=== PATIENT | female | born 1990 | race Caucasian/White ===

== ENCOUNTER 2024-06-08 02:57 | Outpatient (CLI) | payer BC, SELFPAY ==
[2024-06-08 12:21] LABS: Panorama Kit Sent via Fed Ex
[2024-06-08 12:41] LABS: HCT 38.7 % (36.0-46.0); MCH 30.5 pg (27.0-33.0); MCHC 33.6 % (32.0-36.0); MCV 91 fL (80-95); MPV 10.9 fL (8.0-11.0); Neutrophils % 67.1 %; Platelet Count 141 10^3/uL (130-400); RBC 4.26 10^6/uL (3.93-5.22); RDW 11.6 % (11.7-14.6); RDW-SD 38.1 fL; WBC 4.73 10^3/uL (4.4-10.8)
[2024-06-08 12:42] LABS: Abs Immature Grans 0.02 10^3/uL (0.0-0.06); Absolute Basophil Count 0.01 10^3/uL (0.0-0.2); Absolute Eosinophil Count 0.03 10^3/uL (0.0-0.7); Absolute Lymphocyte Count 1.14 10^3/uL (1.2-3.4); Absolute Monocyte Count 0.36 10^3/uL (0.1-0.8); Absolute Neutrophil Count 3.17 10^3/uL (1.2-6.7); Basophils % 0.2 %; Eosinophils % 0.6 %; Immature Grans % 0.4 %; Lymphocytes % 24.1 %; Monocytes % 7.6 %
[2024-06-08 12:52] LABS: ALT 20 U/L (14-59); AST 11 U/L (15-37); Albumin 4.3 g/dL (3.4-5.0); Alkaline Phosphatase 57 U/L (46-116); Anion Gap 10.5 mmol/L (3-11); BUN 7 mg/dL (7-18); Bilirubin, Total 0.5 mg/dL (0.2-1.0); CO2 26.5 mmol/L (21.0-32.0); CREATININE 0.5 mg/dL (0.55-1.02); Calcium 9.7 mg/dL (8.5-10.1); Chloride 103 mmol/L (98-107); Estimated GFR 128.52 (mL/min/1.73m2); Glucose 75 mg/dL (74-106); Potassium 3.7 mmol/L (3.5-5.1); Sodium 140 mmol/L (136-145); Total Protein 7.6 g/dL (6.4-8.2)
[2024-06-09 09:11] LABS: Hepatitis B Surface Ag Negative (Negative)
[2024-06-09 09:50] LABS: HIV-1/2 Ag & Ab Screen Negative (Negative)
[2024-06-09 10:09] LABS: Hepatitis C Ab w Rflx HCV PCR Negative (Negative)
[2024-06-09 10:12] LABS: Rubella IgG Ab (UVM) Positive (See Note)
[2024-06-09 10:14] LABS: Varicella IgG Antibody Positive (See Note)
[2024-06-10 17:49] LABS: Syphilis IgG w/Reflex Nonreactive (Nonreactive)
[2024-06-11 01:04] LABS: Specimen WB Whole Blood
[2024-06-23 23:36] LABS: Result Summary NEGATIVE; Specimen WB Whole Blood
== END 2024-06-08 02:58 | disposition home or self-care (01) ==
PROVIDERS: Visit Provider Advanced Practice Midwife
DX: Z34.91 Encounter for supervision of normal pregnancy, unspecified, first trimester (principal)
CPT/HCPCS: 36415; 80053; 81220; 81222; 81329; 86787; 86803; 86850; 86900; 86901; 87340; 87389; 85025; 86762; 86780

== ENCOUNTER 2024-06-08 12:17 | Outpatient (REF) | payer BC, SELFPAY ==
[2024-06-08 17:22] LABS: COMMENT (LAB VIEW ONLY) 97.45 mg/dL; PROTEIN 11.1 mg/dL; Prot/Crea Ur Ratio 0.11
[2024-06-08 17:29] LABS: *AMPHETAMINES SCREEN URINE Negative (Negative); *BARBITURATES SCREEN URINE Negative (Negative); *BENZODIAZEPINES SCREEN URINE Negative (Negative); Cannabinoids THC Negative (Negative); Cocaine Screen,Urine Negative (Negative); METHADONE URINE SCREEN Negative (Negative); OPIATES URINE SCREEN Negative (Negative)
[2024-06-08 17:30] LABS: Tricyclic Antidepressants Negative (Negative)
[2024-06-09 11:55] LABS: Chlamydia Result Negative (Negative); GC Result Negative (Negative)
[2024-06-09 12:33] LABS: Fentanyl Scr w/Rfx Confirm Negative ng/mL (<1)
[2024-06-11 14:02] LABS: Buprenorphine Negative ng/mL (Cutoff: 5.0); Norbuprenorphine Negative ng/mL (Cutoff: 2.5)
== END 2024-06-08 12:18 | disposition home or self-care (01) ==
LOC: LBN 12:17
PROVIDERS: Visit Provider Advanced Practice Midwife
DX: Z34.91 Encounter for supervision of normal pregnancy, unspecified, first trimester (principal)
CPT/HCPCS: 80307; 80348; 87491; 87591; 82565; 84156; 87086

== ENCOUNTER 2024-07-20 03:22 | Outpatient (CLI) | payer BC, SELFPAY ==
[2024-07-22 12:58] LABS: AFP 37.1 ng/mL; Calculated age at EDD 32 years; Cigarette smoking status non-Smoker; GA used in risk estimate Dates estimate; IVF Pregnancy No; Initial or repeat testing Initial testing; Insulin dependent diabetes No; Maternal Weight 164 lbs; Number of Fetuses 1; Physician Phone Number 802-748-7300; Prev Pregnancy w/NTD No; RECOMMENDED FOLLOW UP None.; Results Summary Normal risk
== END 2024-07-20 03:23 | disposition home or self-care (01) ==
LOC: LBO 03:22
PROVIDERS: Visit Provider Advanced Practice Midwife
DX: Z34.91 Encounter for supervision of normal pregnancy, unspecified, first trimester (principal)
CPT/HCPCS: 36415; 82105

== ENCOUNTER 2024-10-06 02:35 | Outpatient (CLI) | payer BC, SELFPAY ==
[2024-10-06 11:28] LABS: HCT 35.0 % (36.0-46.0); HGB 12.1 g/dL (11.2-15.7); MCH 32.1 pg (27.0-33.0); MCHC 34.6 % (32.0-36.0); MCV 93 fL (80-95); MPV 10.7 fL (8.0-11.0); Platelet Count 146 10^3/uL (130-400); RBC 3.77 10^6/uL (3.93-5.22); RDW 12.7 % (11.7-14.6); RDW-SD 42.7 fL; WBC 7.19 10^3/uL (4.4-10.8)
[2024-10-06 12:17] LABS: Glucose,1 Hr (Glucola) 111 mg/dL (80-140)
== END 2024-10-06 02:36 | disposition home or self-care (01) ==
LOC: LBO 02:35
PROVIDERS: Visit Provider Advanced Practice Midwife
DX: Z34.92 Encounter for supervision of normal pregnancy, unspecified, second trimester (principal)
CPT/HCPCS: 36415; 82950; 85027

== ENCOUNTER 2024-10-06 10:49 | Outpatient (REF) | payer BC, SELFPAY ==
[2024-10-06 12:37] LABS: Cannabinoids THC Negative (Negative); METHADONE URINE SCREEN Negative (Negative)
[2024-10-07 11:33] LABS: Fentanyl Scr w/Rfx Confirm Negative ng/mL (<1)
== END 2024-10-06 10:50 | disposition home or self-care (01) ==
LOC: LBN 10:49
PROVIDERS: Visit Provider Advanced Practice Midwife
DX: Z34.92 Encounter for supervision of normal pregnancy, unspecified, second trimester
CPT/HCPCS: 80307; 80348

== ENCOUNTER 2024-10-18 20:02 | Emergency (ER) | payer BC, SELFPAY ==
[2024-10-18 20:07] VITALS: BP 153/77; PULSE 79; RESP 18; TEMP 36.3; O2SAT 98
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
[2024-10-18 20:21] VITALS: BP 129/85
== END 2024-10-18 20:41 | disposition home or self-care (01) ==
PROVIDERS: Emergency Provider Emergency Medicine Emergency Medical Services
DX: G43.909 Migraine, unspecified, not intractable, without status migrainosus (principal)
CPT/HCPCS: 99283; 99282

== ENCOUNTER 2024-11-21 00:16 | Outpatient (CLI) | payer BC, SELFPAY ==
--- NOTE | 2024-11-21 05:15 | DI.US_ITS ---
Exam(s) US OB LULA WEIGHT EXAM: US OB LULA WEIGHT CLINICAL HISTORY: S>D,size of fetus inconsistent with dates,O26.843. TECHNIQUE: Transabdominal obstetrical ultrasound performed. COMPARISON: US US OB 2-3 TRIMESTER from 08/10/2024 FINDINGS: Number of fetuses: 1 position: CEPHALIC Placental location: There is a grade 1 fundal placenta. No evidence of previa. BIOMETRIC DATA: BPD: 8.85cm, 35weeks 5days HC: 33.14cm, 37weeks 5days AC: 31.45cm, 35weeks 3days FL: 6.94cm, 35weeks 4days EFW: 2,754.38g, 6lb 1.2oz, 64.9% Composite Age: 36weeks 1day ISABEL: 12/18/2024 Heart Rate: 140bpm Amniotic fluid index: 16.31cm. The largest pocket measures 6.4 cm. IMPRESSION: 1. Single live intrauterine gestation as above. 2. Estimated weight is 2754gms. This is the 65th percentile. 3. Amniotic fluid index is 16.3 cm. The largest pocket measures 6.4 cm. DATA REPOSITORY:
== END 2024-11-21 00:36 ==
LOC: DI 00:16
PROVIDERS: Visit Provider Advanced Practice Midwife
DX: O26.843 Uterine size-date discrepancy, third trimester (principal); Z3A.37 37 weeks gestation of pregnancy
CPT/HCPCS: 76816

== ENCOUNTER 2024-11-28 10:30 | Outpatient (REF) | payer BC, SELFPAY | END 2024-11-28 10:31 | disposition home or self-care (01) | LOC: LBN 10:30 | PROVIDERS: Visit Provider Advanced Practice Midwife | DX: Z34.93 Encounter for supervision of normal pregnancy, unspecified, third trimester (principal) | CPT/HCPCS: 87081 ==

== ENCOUNTER 2024-12-20 00:34 | Inpatient (IN) | payer BC, SELFPAY ==
[2024-12-20] VITALS (36 sets, daily range): BP systolic 115–146; BP diastolic 54–89; PULSE 70–95; RESP 16; TEMP 36.4–37.4; O2SAT 96–100
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
[2024-12-20 01:00] LABS: Abs Immature Grans 0.05 10^3/uL (0.0-0.06); HCT 34.8 % (36.0-46.0); HGB 11.9 g/dL (11.2-15.7); Immature Grans % 0.6 %; MCH 31.0 pg (27.0-33.0); MCHC 34.2 % (32.0-36.0); MCV 91 fL (80-95); MPV 11.8 fL (8.0-11.0); Platelet Count 145 10^3/uL (130-400); RBC 3.84 10^6/uL (3.93-5.22); RDW 12.7 % (11.7-14.6); RDW-SD 40.9 fL; WBC 8.74 10^3/uL (4.4-10.8)
[2024-12-20 01:13] LABS: ALT 10 U/L (14-59); AST 14 U/L (15-37); Albumin 3.1 g/dL (3.4-5.0); Alkaline Phosphatase 150 U/L (46-116); Anion Gap 12.3 mmol/L (3-11); BUN 13 mg/dL (7-18); Bilirubin, Total 0.2 mg/dL (0.2-1.0); CO2 22.7 mmol/L (21.0-32.0); Calcium 10.1 mg/dL (8.5-10.1); Chloride 103 mmol/L (98-107); Estimated GFR 118.51 (mL/min/1.73m2); Glucose 79 mg/dL (74-106); Potassium 4.0 mmol/L (3.5-5.1); Sodium 138 mmol/L (136-145); Total Protein 6.6 g/dL (6.4-8.2)
[2024-12-20] MEDS: Oxytocin 10 UNITS/ML VIAL IM (06:08)
[2024-12-20] MEDS: Hamamelis Leaf/Glycerin 100 EACH BOX PR (07:37)
[2024-12-20] MEDS: Dibucaine 1% 28 GM TUBE TP (07:38)
--- NOTE | 2024-12-20 07:59 | W.OBDELIVERY ---
Date of service: 12/20/24 Time of Service: 07:59 OB Labor/ Delivery Information Baby A Delivery Delivery Method: Spontaneaous Presentation: Cephalic Cephalic Position: Vertex Vertex Position: Right Occipital Anterior Cord Description-Baby A: 3 Vessels Amniotic Fluid: Clear Quantitative Blood Loss: 250 Delivery Outcome: Liveborn Complications: none Transferred: Remains with Mother Note: FHTs 130s during first stage of labor. Sharri began experiencing stronger contractions and moved to the tub. Shortly after getting in the tub, she began experiencing an urge to push. She was examined and had a rim of cervix. FHTs 130s in second stage. She progressed to full dilation and began pushing. Spontaneous delivery of male infant delivered in CORNELIA position. Baby was brought to the surface immediately and placed on mother's arms and stimulated. Spontaneous cry. Cord was clamped and cut by the baby's father. After moving to [facility], the placenta delivered spontaneously and appears to by intact with a three vessel cord. Pitocin 10 units was administered before delivery of the placenta. The perineum was inspected and a first degree laceration was repaired . The baby did breastfeed. After delivery, Mother and baby and father of the baby were stable and bonding well in the delivery room and there were no complications. Providers Nurse Actuarial Mathematician: Tila Shields Nurse: Joceline Elias Nurse: Ruba Rizzo Other: Unique Dasilva RN Labor/Delivery Information Number of Babies in Womb: 1 Steroids Given: None Reason Steroids Not Administered: N/A Group Beta Strep: Negative Antibiotics Administered: No Rubella Status: Immune Blood Type: B+ Varicella Immunity: Immune Medication in Delivery: none Born En Route: No Maternal Complications: None Shoulder Dystocia: No Stages of Labor Onset of Labor Date: 12/19/24 Onset of Labor Time: 23:20 Complete Dilatation Date: 12/20/24 Complete Dilatation Time: 06:00 Labor - Stage 1 Duration: 6 hours and 40 minutes ROM Baby A: 12/19/24 ROM Baby A: 23:20 ROM Total Time- Baby A: [id number] Delivery Date-Baby A: 12/20/24 Infant Delivery Time-Baby A: 06:04 Labor Stage 2 Duration: 4 minutes Placenta Delivery Date-Baby A: 12/20/24 Total Length of Labor-Baby A: 6 hours and 44 minutes Placenta Cultured: No Baby A Infant Gender: Male Gestational Status: Term (39-41.6 wks) Gestational Age in Weeks/Days: 39 Weeks and 2 Days Interventions Repair of Laceration Type: Perineal, Laceration Extension: First Degree. Sponge Count Correct: No Sponges Placed in Vagina, Sharp Count Correct: Yes. Laceration Repair Note: small skin flap on right side of perineum repaired
[2024-12-20] MEDS: Ibuprofen 600 MG TAB PO ×2 (09:28→20:28)
[2024-12-20] MEDS: Acetaminophen 325 MG TAB 650 MG PO ×2 (09:28→14:21)
[2024-12-21 00:45] VITALS: BP 118/72; PULSE 84; RESP 17; TEMP 37.2; O2SAT 99
[2024-12-21] MEDS: Acetaminophen 325 MG TAB 650 MG PO ×2 (03:39→09:50)
[2024-12-21] MEDS: Ibuprofen 600 MG TAB PO ×2 (03:39→10:05)
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
[2024-12-21 09:50] VITALS: TEMP 36.7
[2024-12-21 10:05] VITALS: TEMP 36.7
[2024-12-21] MEDS: Escitalopram 10 MG TAB PO (11:09)
== END 2024-12-21 12:00 | disposition home or self-care (01) | DRG 807 ==
PROVIDERS: Admitting Provider Advanced Practice Midwife; Visit Provider Advanced Practice Midwife
DX: O99.354 Diseases of the nervous system complicating childbirth (principal); Z37.0 Single live birth; Z3A.39 39 weeks gestation of pregnancy; G43.109 Migraine with aura, not intractable, without status migrainosus; M54.32 Sciatica, left side; Z88.1 Allergy status to other antibiotic agents; O99.344 Other mental disorders complicating childbirth; F32.89 Other specified depressive episodes; O36.63X0 Maternal care for excessive fetal growth, third trimester, not applicable or unspecified
CPT/HCPCS: 80053; 86850; 86900; 86901; 85025; J2590

== ENCOUNTER 2025-02-17 10:52 | Outpatient (CLI) | payer BC, SELFPAY ==
[2025-02-17 13:16] LABS: TSH (W/Ref FT4) 1.39 uIU/mL (0.55-4.78)
== END 2025-02-17 10:53 | disposition home or self-care (01) ==
LOC: LBO 10:53
PROVIDERS: Visit Provider Advanced Practice Midwife
DX: F41.9 Anxiety disorder, unspecified (principal); F53.0 Postpartum depression
CPT/HCPCS: 36415; 84443